=== PATIENT | male | born 1960 | race Asian ===

== ENCOUNTER 2019-01-12 14:06 | Emergency (ER) | payer OTHER ==
[~2019-01-12] VITALS: Ht 167.6 cm; Wt 82.0 kg
[2019-01-12] MEDS ORDERED: IBUPROFEN 400MG TABLET PO ONE (16:00)
[2019-01-12 18:50] VITALS: BP 145/80
== END 2019-01-12 18:52 | disposition home or self-care (01) ==
LOC: ER 14:06
DX: R07.89 Other chest pain (principal); M54.89 Other dorsalgia; E11.9 Type 2 diabetes mellitus without complications; Z79.82 Long term (current) use of aspirin; V43.52XA Car driver injured in collision with other type car in traffic accident, initial encounter; Y93.89 Activity, other specified; Y92.488 Other paved roadways as the place of occurrence of the external cause
CPT/HCPCS: 71045; 72070; 72100; 99283